=== PATIENT | male | born 1955 ===

== ENCOUNTER 2018-08-03 17:05 | Emergency (ER) | payer MEDICARE ==
[2018-08-03 17:05] VITALS: BMI 31.4
[2018-08-03 17:18] VITALS: RESP 18; TEMP 98.7; O2SAT 98
--- NOTE | 2018-08-03 17:38 | ED PDOC ---
Arrival/HPI - General Chief Complaint: Abnormal Skin Integrity Time Seen by Provider: 08/03/18 17:23 Historian: Patient - History of Present Illness Narrative History of Present Illness (Text): 08/03/18 17:36 62yo male with pmxh of Cadasil syndrome, multiple CVA present to ED with his family for evaluation s/p head injury this evening. the family states he usually ambulates with a walker, but decided to ambulate without his walker or help today and he fell and injured his head. The family states they brought him to ED to r/o head bleed secondary to his history of of recurrent CVA. Patient sustained abrasion to his occipital head. He denies headache, focal weakness, visual changes, nausea, vomiting, any somatic complaint. Past Medical History - Provider Review Nursing Documentation Reviewed: Yes - Infectious Disease Hx of Infectious Diseases: None - Tetanus Immunization Tetanus Immunization: Unknown - Cardiac Hx Cardiac Disorders: No - Pulmonary Hx Sleep Apnea: Yes (Uses C-PAP HS) - Neurological HX Cerebrovascular Accident: Yes (left sided weakness) Other/Comment: CADASIL SYNDROME - HEENT Hx HEENT Disorder: Yes Other/Comment: left eye double vision late 1997 - Renal Hx Renal Disorder: No - Endocrine/Metabolic Hx Hypothyroidism: Yes - Hematological/Oncological Hx AIDS: No - Integumentary Hx Dermatological Disorder: No - Musculoskeletal/Rheumatological Hx Falls: Yes - Gastrointestinal Hx Gastrointestinal Disorders: Yes - Genitourinary/Gynecological Hx Genitourinary Disorders: No - Psychiatric Hx Depression: Yes Hx Substance Use: No - Surgical History Hx Musculoskeletal Surgery: Yes ([employer].) - Anesthesia Hx Anesthesia: Yes Hx Anesthesia Reactions: No Hx Malignant Hyperthermia: No - Suicidal Assessment Feels Threatened In Home Enviroment: No Family/Social History - Physician Review Nursing Documentation Reviewed: Yes Family/Social History: Unknown Family HX Smoking Status: Former Smoker Hx Alcohol Use: No Hx Substance Use: No Allergies/Home Meds Allergies/Adverse Reactions: Allergies No Known Allergies Allergy (Verified 08/03/18 17:18) Review of Systems - Physician Review All systems were reviewed & negative as marked: Yes - Review of Systems Constitutional: Normal Eyes: Normal ENT: Normal Respiratory: Normal Cardiovascular: Normal Gastrointestinal: Normal Genitourinary Male: Normal Musculoskeletal: Normal Skin: Other (Head Abrasion) Neurological: Normal Endocrine: Normal Hemo/Lymphatic: Normal Psychiatric: Normal Physical Exam Vital Signs Reviewed: Yes Vital Signs Temp Pulse Resp BP Pulse Ox 08/03/18 17:14 98.7 F 73 18 146/83 98 Temperature: Afebrile Blood Pressure: Normal Pulse: Regular Respiratory Rate: Normal Appearance: Positive for: Well-Appearing, Non-Toxic, Comfortable Pain Distress: None Mental Status: Positive for: Alert and Oriented X 3 - Systems Exam Head: Present: Atraumatic, Normocephalic, Abrasion (2.0cm linear abrasion noted to posterior scalp). No: Tenderness Pupils: Present: PERRL Extroacular Muscles: Present: EOMI Conjunctiva: Present: Normal Mouth: Present: Moist Mucous Membranes Neck: Present: Normal Range of Motion Respiratory/Chest: Present: Clear to Auscultation, Good Air Exchange. No: Respiratory Distress, Accessory Muscle Use Cardiovascular: Present: Regular Rate and Rhythm, Normal S1, S2. No: Murmurs Abdomen: No: Tenderness, Distention, Peritoneal Signs Back: Present: Normal Inspection Upper Extremity: Present: Normal Inspection. No: Cyanosis, Edema Lower Extremity: Present: Normal Inspection. No: Edema Neurological: Present: GCS=15, CN II-XII Intact, Speech Normal, Motor Func Grossly Intact Skin: Present: Warm, Dry, Normal Color. No: Rashes Psychiatric: Present: Alert, Oriented x 3, Normal Insight, Normal Concentration Medical Decision Making ED Course and Treatment: 08/03/18 19:49 PT present to ED for stated history. He was not in any distress. AAO x3. denied any focal somatic complaint. Head CT - No acute finding. Wound was irrigated with NS and baictracine applied. Result was DW with both pt and the family members. Advised to f/u with the PMD TRT ED for any worsening symptom - RAD Interpretation Radiology Orders: 08/03/18 17:35 HEAD W/O CONTRAST [CT] Stat Disposition/Present on Arrival - Present on Arrival Any Indicators Present on Arrival: No History of DVT/PE: No History of Uncontrolled Diabetes: No Urinary Catheter: No History of Decub. Ulcer: No History Surgical Site Infection Following: None - Disposition Have Diagnosis and Disposition been Completed?: Yes Diagnosis: Head injury Disposition: HOME/ ROUTINE Disposition Time: 19:40 Patient Plan: Discharge Patient Problems: Current Active Problems Problem Status Onset Head injury Acute Condition: STABLE Discharge Instructions (ExitCare): Minor Head Injury (DC) Additional Instructions: Follow up with your Doctor Return to ED for any new or worsening symptoms Referrals: Yee Miner MD [Medical Doctor] - Follow up with primary Forms: [employer] (Sen[place]alese)
--- NOTE | 2018-08-03 18:54 | CT ---
Date of service: 08/03/2018 PROCEDURE: CT HEAD WITHOUT CONTRAST. HISTORY: s/p head injury COMPARISON: None available. TECHNIQUE: Axial computed tomography images were obtained through the head/brain without intravenous contrast. Radiation dose: Total exam DLP = 1019.94 mGy-cm. This CT exam was performed using one or more of the following dose reduction techniques: Automated exposure control, adjustment of the mA and/or kV according to patient size, and/or use of iterative reconstruction technique. FINDINGS: HEMORRHAGE: No intracranial hemorrhage. BRAIN: Diffuse atrophy with prominence of the ventricles and sulci noted. Region of focal atrophy within the high parietal lobe. No mass effect or edema. Intracranial atherosclerotic calcifications. Patchy hypodense regions involving bilateral temporal lobes, possibly encephalomalacia. Moderate to severe scattered periventricular and subcortical white matter hypodensities, which are nonspecific, but often seen with chronic microvascular ischemic disease. Left basal ganglia hypodensities consistent with lacunar infarcts. Please note that MRI with diffusion imaging is more sensitive in the detection of acute ischemic event. VENTRICLES: No hydrocephalus. CALVARIUM: Unremarkable. PARANASAL SINUSES: Marked mucosal thickening of the right mastoid air cells. Mild mucosal thickening of the ethmoid air cells. Remainder the visualized paranasal sinuses appear clear. MASTOID AIR CELLS: Unremarkable as visualized. No inflammatory changes. OTHER FINDINGS: None. IMPRESSION: Patchy bilateral hypodensities involving the temporal lobes, possibly encephalomalacia. Moderate to severe nonspecific white matter changes. Left basal ganglia hypodensities consistent with lacunar infarcts. Region of focal atrophy involving the left high parietal lobe. Overall generalized atrophy noted. Please note that acute on chronic ischemia cannot be excluded. If this is of clinical concern, please note that MRI with diffusion imaging is more sensitive in the detection of acute ischemic event.
[2018-08-03 20:04] VITALS: BP 127/81; PULSE 78
== END 2018-08-03 20:02 | disposition home or self-care (01) ==
LOC: ED 17:05
DX: S09.90XA Unspecified injury of head, initial encounter (principal); W18.30XA Fall on same level, unspecified, initial encounter; Y92.9 Unspecified place or not applicable; Z86.73 Personal history of transient ischemic attack (TIA), and cerebral infarction without residual deficits